=== PATIENT | female | born 1960 | race Caucasian/White ===

== ENCOUNTER 2022-10-17 11:11 | Outpatient (AMB) | payer MEDICARE, SELFPAY ==
--- NOTE | 2022-10-17 11:39 | AM.OFFWIN_ITS ---
Intake Vital Signs 10/17/22 11:42 Height 5 ft 5 in Weight 180 lb BMI 30.0 BP 118/72 Blood Pressure Location Rt brachial Position Sitting Pulse 82 Pulse Source Pulse Oximeter Temp 97.9 F Temp Source Temporal Artery Scan Pulse Oximetry (%) 99 Intake Visit Reasons: PROGRAM ASSISTANT/chest cold Intake Note: pt is here for c/o chest congestion Patient Tobacco Use Status: Never used Tobacco Allergies codeine Allergy (Unknown, Verified 10/17/22 11:40) Rash Sulfa (Sulfonamide Antibiotics) Allergy (Unknown, Verified 10/17/22 11:40) Hives Do you need a note to return to daycare/school/sports/work: No HPI PROGRAM ASSISTANT/chest cold HPI Details 62-year-old female patient presents today for a sick visit. She reports having the flu about 1 month ago, and since then, has had a persistent postnasal drip, cough with cloudy sputum, and coughing fits that at times cause shortness of breath. She has been using inhaler with good effect. She denies any fever or chills. FOR[facility]LY [facility], [facility] Social History Patient Tobacco Use Status: Never used Tobacco Review of Systems Const All systems reviewed & are unremarkable except as noted in HPI and below Physical Exam Vital Signs: Last Vital Signs Temp 97.9 F 10/17/22 11:42 Pulse 82 10/17/22 11:42 BP 118/72 10/17/22 11:42 Pulse Ox 99 10/17/22 11:42 BMI result Body Mass Index 30.0 Const General: cooperative, healthy appearing, comfortable and no acute distress HEENT Head: Yes normal to inspection and Yes normocephalic Ears: hearing grossly normal bilaterally General nose exam: Normal external nose present, Normal nares present and Normal nasal mucous membranes and turbinates present Face and sinus: Yes normal facial exam and Yes sinuses nontender Mouth: Normal oral and palatal mucosa present and moist mucous membranes Throat: Yes posterior oropharynx normal Neck Neck: Yes no lymphadenopathy Resp Effort & Inspection: normal respiratory effort and able to speak in complete sentences Auscultation: clear to auscultation bilaterally Cardio Jugular venous distension: no JVD Palpation: normal PMI Rate: regular rate Rhythm: regular rhythm Skin General skin exam: no rashes or lesions noted Extrem General: Yes capillary refill normal and Yes no clubbing, cyanosis or edema Psych Appearance: grossly normal Mental Status: mental status grossly normal Speech and movement: Normal speech and movement present Assessment & Plan Assessment & Plan (1) Upper respiratory infection: Code(s): J06.9 - Acute upper respiratory infection, unspecified Qualifiers: URI type: unspecified URI Qualified Code(s): J06.9 - Acute upper respiratory infection, unspecified Plan: Patient has persistent cough, postnasal drip, since having the flu last month. Advised that she can continue to use inhaler as needed, should increase hydration, and I will start her on a short course of azithromycin to see if this helps alleviate leg ring symptoms. We reviewed indications, use, possible side effects of this. If she does not improve, or if new symptoms develop, she should return to the clinic or see PCP for further evaluation. She agrees to plan. Medications: New azithromycin For 250 mg dose pack: take 500 mg today (day 1), then 250 mg for 4 days (days 2-5) PO 6 tabs 0RF J06.9 - Acute upper respiratory infection, unspecified Coding Level of Care Code Est Pt Level 3 (73970) Diagnoses Upper respiratory tract infection, unspecified type J06.9 URI type: unspecified URI
[2022-10-17 11:42] VITALS: BP 118/72; PULSE 82; TEMP 36.6; O2SAT 99
== END 2022-10-17 12:24 | disposition home or self-care (01) ==
PROVIDERS: PCP Internal Medicine; Visit Provider Nurse Practitioner Family
DX: J06.9 Acute upper respiratory infection, unspecified (principal)
CPT/HCPCS: 99213